=== PATIENT | female | born 1980 | race Caucasian/White ===

== ENCOUNTER → 2020-02-24 | Outpatient (CLI) | payer BC ==
--- NOTE | 2020-02-24 14:55 | RADIOLOGY REPORT (SQ) ---
EXAM DESCRIPTION: U/S NON-OB PELVIS TV W/O DOP IMAGES COMPLETED DATE/TIME: 02/24/2020 2:08 pm REASON FOR STUDY: N92.0 EXCESSIVE AND FREQUENT MENSTRUATION WITH REGULAR CYCLE N92.0 EXCESSIVE AND FREQUENT MENSTRUATION WITH REGULAR CYCLE LMP September 2019 COMPARISON: None. TECHNIQUE: Dynamic and static grayscale images acquired of the pelvis via transvaginal approach and recorded on PACS. Additional selected color Doppler and spectral images recorded. LIMITATIONS: None. FINDINGS: UTERUS: Contour normal. No mass. ENDOMETRIAL STRIPE: No focal or generalized thickening. No masses. CERVIX: 2.3 cm. No nabothian cysts. RIGHT OVARY AND DOPPLER: Normal size. No worrisome masses. Normal arterial vascular flow without evid ence for torsion. LEFT OVARY AND DOPPLER: Normal size. No worrisome masses. 3.3 x 2.3 x 1.8 cm cyst. Normal arterial vascular flow without evidence for torsion. FREE FLUID: None noted. OTHER: No other significant finding. MEASUREMENTS: UTERUS: 8.1 x 4.8 x 4.6 cm. ENDOMETRIAL STRIPE: 11 mm. RIGHT OVARY: 2.6 x 2.3 x 2.9 cm. LEFT OVARY: 3.8 x 3.5 x 2.6 cm. IMPRESSION: Right ovarian cyst that is almost certainly benign. No additional imaging is required f or this. Study is otherwise unremarkable. TECHNICAL DOCUMENTATION: JOB ID: [id number] [email or web address]- All Rights Reserved Rev Reading location - IP/workstation name: [email or web address]
== END ==
LOC: RAD 13:25
PROVIDERS: ATTEND Physician Assistant
DX: N92.0 Excessive and frequent menstruation with regular cycle (principal)
CPT/HCPCS: 76830